=== PATIENT | female | born 1980 | race Caucasian/White ===

== ENCOUNTER 2019-06-28 20:49 | Inpatient (IN) | payer OTHER, MEDICAID ==
[2019-06-28] MEDS: ONDANSETRON 4 MG INJ IV ×2 (21:52→23:28)
[2019-06-28] MEDS: SOD CHLORIDE 0.9% 1,000 ML IV (21:53)
[2019-06-28] MEDS: FAMOTIDINE 20 MG TAB PO (22:25)
[2019-06-28] MEDS: LIDOCAINE/MYLANTA 40 ML BTL PO (22:26)
[2019-06-28] MEDS: PIPER-TAZO 3.375 GM IV (PMX) 100 ML IVPB (23:28)
[2019-06-28] MEDS: morphine 10 MG INJ IV (23:34)
[2019-06-29] MEDS ORDERED: NACL 0.9% 3 ML SYG IV
[2019-06-29] MEDS ORDERED: KETOROLAC 30 MG INJ IV
[2019-06-29] MEDS: DEXTROSE 5%-0.45% NACL 1,000 ML IV ×3 (01:35→21:26)
[2019-06-29] MEDS: morphine 2 MG INJ IV ×3 (01:43→19:36)
[2019-06-29] MEDS: ONDANSETRON 4 MG INJ IV (01:43)
[2019-06-29] MEDS: PIPER-TAZO 3.375 GM IV (PMX) 100 ML IVPB ×3 (07:27→21:24)
[2019-06-29] MEDS: SOD FERRIC GLUC COMPLX 125 MG in SOD CHLORIDE 0.9% 100 ML IVPB (16:43)
[2019-06-30] MEDS: DEXTROSE 5%-0.45% NACL 1,000 ML IV ×3 (00:51→16:31)
[2019-06-30] MEDS: PIPER-TAZO 3.375 GM IV (PMX) 100 ML IVPB ×4 (02:57→21:20)
[2019-06-30] MEDS: ACETAMINOPHEN 325 MG TAB PO (10:00)
[2019-06-30] MEDS: SOD FERRIC GLUC COMPLX 125 MG in SOD CHLORIDE 0.9% 100 ML IVPB (12:33)
[2019-06-30] MEDS ORDERED: SOD FERRIC GLUC COMPLX 125 MG in SOD CHLORIDE 0.9% 100 ML IVPB (13:00)
[2019-06-30] MEDS ORDERED: LIDOCAINE 2% (SDV) 5 ML INJ (13:54)
[2019-06-30] MEDS ORDERED: PROPOFOL 100 ML (13:54)
[2019-06-30] MEDS ORDERED: ROCURONIUM 50 MG INJ (13:54)
[2019-06-30] MEDS ORDERED: DEXAMETHASONE 4 MG/ML 5 ML INJ (13:55)
[2019-06-30] MEDS ORDERED: ONDANSETRON 4 MG INJ (13:57)
[2019-06-30] MEDS: LIDOCAINE 1%/EPI 30 ML INJ (14:06)
[2019-06-30] MEDS: BUPIVACAINE 0.25% (MPF) 30 ML INJ (14:06)
[2019-06-30] MEDS ORDERED: SUGAMMADEX SODIUM 200 MG/2 ML VIAL IV ×2 (14:31→14:47)
[2019-06-30] MEDS ORDERED: DIPHENHYDRAMINE 50 MG INJ IV ×2 (15:00→17:00)
[2019-06-30] MEDS ORDERED: MEPERIDINE 25 MG INJ IV ×2 (15:00→17:00)
[2019-06-30] MEDS ORDERED: HYDROmorphONE 1 MG/5 ML IV SYRINGE IV ×5 (15:00→17:00)
[2019-06-30] MEDS ORDERED: EPHEDrine 25 MG/5 ML SYG IV ×2 (15:00→17:00)
[2019-06-30] MEDS ORDERED: hydrALAzine 20 MG INJ IV ×2 (15:00→17:00)
[2019-06-30] MEDS ORDERED: OXYCODONE/ACETAMINOPHEN (5/325) TAB PO ×4 (15:00→17:00)
[2019-06-30] MEDS ORDERED: ONDANSETRON 4 MG INJ IV ×2 (15:00→17:00)
[2019-06-30] MEDS ORDERED: MIDAZOLAM 1 MG/ML 2 ML INJ IV (15:00)
[2019-06-30] MEDS ORDERED: KETOROLAC 30 MG INJ IV ×2 (15:00→17:00)
[2019-06-30] MEDS ORDERED: LABETALOL HCL 20MG INJ IV ×2 (15:00→17:00)
[2019-06-30] MEDS ORDERED: FENTAnyl 50 MCG/ML VIAL IV ×4 (15:00→17:00)
[2019-06-30] MEDS ORDERED: ALBUTEROL 0.083% (NEB) 2.5 MG/3 ML AMP HHN ×3 (15:00→19:00)
[2019-06-30] MEDS: HYDROmorphONE 1 MG/5 ML IV SYRINGE IV ×2 (15:14→15:19)
[2019-06-30] MEDS: FENTAnyl 50 MCG/ML VIAL IV ×3 (15:23→15:57)
[2019-06-30] MEDS: ONDANSETRON 4 MG INJ IV (15:28)
[2019-06-30] MEDS: morphine 2 MG INJ IV (16:38)
[2019-06-30] MEDS ORDERED: METOCLOPRAMIDE 10 MG INJ IV (17:00)
[2019-06-30] MEDS: FISH OIL 1,000 MG CAP PO (21:20)
[2019-07-01] MEDS: DEXTROSE 5%-0.45% NACL 1,000 ML IV ×2 (01:50→03:08)
[2019-07-01] MEDS: PIPER-TAZO 3.375 GM IV (PMX) 100 ML IVPB ×2 (03:08→08:35)
[2019-07-01] MEDS: FISH OIL 1,000 MG CAP PO (08:35)
== END 2019-07-01 13:00 | disposition home or self-care (01) | DRG 418 ==
LOC: FTE 20:49 → MS1 23:39
PROC: 0FT44ZZ Resection of Gallbladder, Percutaneous Endoscopic Approach (ICD-10-PCS; principal; 2019-06-30 13:30)
PROC: 0FB04ZX Excision of Liver, Percutaneous Endoscopic Approach, Diagnostic (ICD-10-PCS; 2019-06-30 13:30)
PROC: BF10YZZ Fluoroscopy of Bile Ducts using Other Contrast (ICD-10-PCS; 2019-06-30 13:30)
DX: K80.12 Calculus of gallbladder with acute and chronic cholecystitis without obstruction (principal); N39.0 Urinary tract infection, site not specified; K76.0 Fatty (change of) liver, not elsewhere classified; D50.9 Iron deficiency anemia, unspecified; E66.9 Obesity, unspecified; Z68.36 Body mass index [BMI] 36.0-36.9, adult
CPT/HCPCS: 36415; 76705; 78226; 80048; 80053; 80061; 81001; 81025; 82728; 83036; 83540; 83690; 83735; 84100; 85025; 85610; 85730; 87086; 88304; 88307; 88313; 93005; 96361; 96374; 96375; 96376; 99285-25